=== PATIENT | male | born 1985 | race Caucasian/White ===

== ENCOUNTER 2018-11-08 09:17 | Emergency (ER) | payer OTHER ==
[~2018-11-08] VITALS: Ht 182.9 cm; Wt 99.8 kg
[2018-11-08] MEDS ORDERED: DOXYCYCLINE 10100 MG PO (09:37)
[2018-11-08 10:48] VITALS: BP 132/77
== END 2018-11-08 10:49 | disposition home or self-care (01) ==
LOC: M.ERS 09:17
DX: S63.501A Unspecified sprain of right wrist, initial encounter (principal); S66.911A Strain of unspecified muscle, fascia and tendon at wrist and hand level, right hand, initial encounter; Z88.2 Allergy status to sulfonamides; W22.8XXA Striking against or struck by other objects, initial encounter; Y93.89 Activity, other specified; Y92.89 Other specified places as the place of occurrence of the external cause; Y99.8 Other external cause status